=== PATIENT | female | born 1990 | race Two or more races ===

== ENCOUNTER 2023-11-17 10:58 | Outpatient (CLI) | payer OTHER | END 2023-11-17 11:00 | disposition home or self-care (01) | LOC: PRENATAL 10:58 | PROVIDERS: ATTEND Obstetrics & Gynecology Maternal & Fetal Medicine | DX: O36.80X0 Pregnancy with inconclusive fetal viability, not applicable or unspecified (principal); Z36.82 Encounter for antenatal screening for nuchal translucency; Z36.9 Encounter for antenatal screening, unspecified; Z3A.12 12 weeks gestation of pregnancy ==

== ENCOUNTER 2024-04-02 09:10 | Outpatient (CLI) | payer OTHER ==
[~2024-04-02 09:10] MED LIST: PRENATAL + DHA1 EAC1 PO
== END 2024-04-02 09:11 | disposition home or self-care (01) ==
LOC: PRENATAL 09:10
PROVIDERS: ATTEND Obstetrics & Gynecology Maternal & Fetal Medicine
DX: O26.843 Uterine size-date discrepancy, third trimester (principal); O36.8130 Decreased fetal movements, third trimester, not applicable or unspecified; O99.013 Anemia complicating pregnancy, third trimester; Z3A.32 32 weeks gestation of pregnancy

== ENCOUNTER 2024-05-18 13:45 | Inpatient (IN) | payer OTHER ==
[~2024-05-18] VITALS: Ht 167.6 cm; Wt 2.7 kg
[2024-05-25 10:45] VITALS: BP 118/73
[2024-05-25] MEDS ORDERED: IRON159 MG PO (11:25)
[2024-05-25] MEDS ORDERED: ECOTRIN81 MG PO (11:25)
[2024-05-25] MEDS ORDERED: RINGERS SOLUTION,LACTATED 1,000 ML IV SCH (11:30)
[2024-05-25 11:41] LABS: HEMATOCRIT 36.9 % (36.0-45.00); HEMOGLOBIN 12.3 g/dL (12.0-15.00); MEAN CELL VOLUME 96.7 fL (80.00-100.00); MEAN CORPUSCULAR HEMOGLOBIN 32.1 pg (27.00-32.0); MEAN CORPUSCULAR HGB CONC 33.2 g/dl (32.0-36.0); PLATELET COUNT 133 K/uL (150-450); RED BLOOD COUNT 3.81 M/uL (4.00-6.00); RED CELL DISTRIBUTION WIDTH 13.7 % (11.5-14.5)
[2024-05-25 11:42] LABS: URINE APPEARANCE Clear; URINE BILIRRUBIN Negative (NEGATIVE); URINE BLOOD Large; URINE COLOR Yellow; URINE GLUCOSE Negative (NEGATIVE); URINE LEUKOCYTE Trace; URINE NITRATE Negative; URINE PROTEIN Negative (NEGATIVE)
[2024-05-25 11:43] LABS: URINE BACTERIA 4945.4 uL (0.0-1933); URINE RBC 12.9 uL (0.0-20.8); URINE WBC 34.6 uL (0.0-23.2)
[2024-05-25 11:53] LABS: URINE KETONE 40 (NEGATIVE)
[2024-05-25 12:08] LABS: INR < 0.93; PARTIAL THROMBOPLASTIN TIME 27.2 SECONDS (22.0-34.0); PROTHROMBIN TIME 10.1 SECONDS (9.0-11.5)
[2024-05-25 12:13] LABS: ALBUMIN 2.9 gm/dL (3.4-5.0); BILIRUBIN TOTAL 0.32 mg/dL (0.3-1.2); CALCIUM 9.3 mg/dL (8.5-10.1); CREATININE SERUM 0.88 mg/dL (0.55-1.02); GFR 73.55; GLOBULINA 4.2 G/DL (2.4-3.5); POTASSIUM 4.05 mEq/L (3.5-5.1); TOTAL PROTEIN 7.1 gm/dL (6.4-8.2)
[2024-05-25] MEDS ORDERED: OXYTOCIN 500 ML IV ONE (12:15)
[2024-05-25 15:38] VITALS: BP 129/82
[2024-05-25] MEDS ORDERED: TERBUTALINE SULFATE 1 MG/ML AMPUL SUBCUTANEO ONE ×2 (18:30→21:15)
[2024-05-25 19:44] VITALS: BP 123/67
[2024-05-25] MEDS ORDERED: CEFAZOLIN SODIUM 1,000 MG VIAL IV ONE (22:30)
[2024-05-26] MEDS ORDERED: KETOROLAC TROMETHAMINE 30 MG VIAL IV SCH
[2024-05-26] MEDS ORDERED: ERYTHROMYCIN BASE OPHT 1GM EACH TUBE OP ONE (00:15)
[2024-05-26] MEDS ORDERED: OXYTOCIN 1,000 ML IV SCH (00:15)
[2024-05-26] MEDS ORDERED: OXYTOCIN 10 UNITS/ML VIAL IV ONE (00:15)
[2024-05-26] MEDS ORDERED: METOCLOPRAMIDE HCL 5 MG/ML VIAL IV NR (00:15)
[2024-05-26] MEDS ORDERED: MORPHINE SULFATE 4 MG/ML VIAL IV ONE ×2 (00:20→00:50)
[2024-05-26] MEDS ORDERED: CEFOXITIN SODIUM 1,000 MG in DEXTROSE 5 % IN WATER 50 ML IV SCH (01:00)
[2024-05-26] MEDS ORDERED: MEPERIDINE HCL 25 MG/ML AMPUL IV ONE (01:20)
[2024-05-26 03:45] VITALS: BP 105/67
[2024-05-26] MEDS ORDERED: MORPHINE SULFATE 4 MG/ML CARTRIDGE IV PRN (06:00)
[2024-05-26] MEDS ORDERED: ONDANSETRON HCL 2 MG/ML VIAL IV PRN (06:00)
[2024-05-26 06:48] LABS: HEMATOCRIT 26.2 % (36.0-45.00); MEAN CELL VOLUME 96.3 fL (80.00-100.00); MEAN CORPUSCULAR HGB CONC 34.1 g/dl (32.0-36.0); RED BLOOD COUNT 2.72 M/uL (4.00-6.00); RED CELL DISTRIBUTION WIDTH 13.7 % (11.5-14.5)
[2024-05-26 07:11] LABS: MEAN CORPUSCULAR HEMOGLOBIN 32.7 pg (27.00-32.0)
[2024-05-26 07:12] LABS: HEMOGLOBIN 8.9 g/dL (12.0-15.00); PLATELET COUNT 110 K/uL (150-450)
[2024-05-26 08:50] VITALS: BP 103/64
[2024-05-26] MEDS ORDERED: SIMETHICONE 125 MG CAPSULE PO SCH (09:00)
[2024-05-26] MEDS ORDERED: ACETAMINOPHEN 325 MG TABLET PO SCH (12:00)
[2024-05-26 13:41] VITALS: BP 102/66
[2024-05-26 16:09] VITALS: BP 104/69
[2024-05-26] MEDS ORDERED: IRON/V.C/V.B12/FOLIC A/VIT. E 1 CAPL CAPLET PO SCH (17:00)
[2024-05-26] MEDS ORDERED: IBUprofen 800 MG TABLET PO SCH (17:00)
[2024-05-26] MEDS ORDERED: SENNOSIDES 1 TAB TABLET PO SCH (21:00)
[2024-05-27 02:15] VITALS: BP 121/74
[2024-05-27 08:00] VITALS: BP 100/62
[2024-05-27] MEDS ORDERED: HYDROCORTISONE 2.5% 30 GM TUBE RECTAL SCH (13:00)
[2024-05-27 16:00] VITALS: BP 108/73
[2024-05-28 01:40] VITALS: BP 120/75
[2024-05-28 08:49] VITALS: BP 103/62
== END 2024-05-28 15:47 | disposition home or self-care (01) | DRG 788 ==
LOC: LDR 05-25 11:11 → O/R 05-25 22:56 → OB/GYN 05-26 00:47 → LDR 05-29 13:45
PROVIDERS: Student in an Organized Health Care Education/Training Program; ADMIT Obstetrics & Gynecology; ATTEND Obstetrics & Gynecology
PROC: 4A1HXCZ Monitoring of Products of Conception, Cardiac Rate, External Approach (ICD-10-PCS; 2024-05-25)
PROC: 10D00Z1 Extraction of Products of Conception, Low, Open Approach (ICD-10-PCS; principal; 2024-05-25 22:00)
DX: O64.0XX0 Obstructed labor due to incomplete rotation of fetal head, not applicable or unspecified (principal); O62.1 Secondary uterine inertia; Z3A.39 39 weeks gestation of pregnancy; Z37.0 Single live birth; Z20.822 Contact with and (suspected) exposure to COVID-19